=== PATIENT | female | born 1950 | race African-American/Black ===

== ENCOUNTER → 2020-03-24 | Outpatient (CLI) | payer MEDICARE, OTHER ==
--- NOTE | 2020-03-24 16:05 | KCIC ---
EXAM: Brain MRI without contrast. HISTORY: Diplopia. TECHNIQUE: Multiplanar, multisequence magnetic resonance imaging of the brain was performed without contrast. COMPARISON: None. FINDINGS: There is no restricted diffusion to suggest acute or subacute infarction. There are foci of susceptibility effect within the left greater than right parietal and posterior temporal lobes and right greater than left cerebellar hemispheres, the appearance of which favors chronic microhemorrhage or amyloid angiopathy. There are focal and confluent areas of signal change within the cerebral white matter in a predominantly periventricular distribution. There is associated encephalization involving the corpus callosum. There are chronic lacunar infarction involving the bilateral medial thalami. There are prominent perivascular spaces within the basal ganglia. The orbits are unremarkable. There is right ethmoid and frontal sinus predominant paranasal sinus because of thickening. There is a small amount of fluid the mastoid air cells. There are normal flow voids within the cerebral vessels. There is cerebral volume loss. No calvarial lesion is seen. IMPRESSION: 1. Signal changes throughout the cerebral white matter and olga in a predominantly periventricular distribution. This is most commonly due to chronic small vessel disease in a patient of this age. 2. Chronic lacunar infarcts within the medial bilateral thalami. 3. Scattered foci of hemosiderin deposition due to hemorrhage or amyloid angiopathy within the cerebral and cerebellar hemispheres. The largest hemorrhage involving the left parietal lobe near the vertex is associated with a punctate focus of T1 hyperintensity. 4. Cerebral atrophy. Electronically signed by: Hien Venegas MD (03/24/2020 4:02 PM) [facility]
== END | disposition home or self-care (01) ==
LOC: KCIC MRI 14:55
PROVIDERS: ATTEND Physician Assistant
DX: I61.1 Nontraumatic intracerebral hemorrhage in hemisphere, cortical (principal); I73.9 Peripheral vascular disease, unspecified; I63.9 Cerebral infarction, unspecified; G31.89 Other specified degenerative diseases of nervous system; H53.2 Diplopia
CPT/HCPCS: 70551